=== PATIENT | male | born 1950 | race Caucasian/White ===

== ENCOUNTER 2019-05-16 16:40 | Emergency (ER) | payer OTHER ==
[2019-05-16] MEDS ORDERED: NA CHLORIDE 0.9% 1,000 ML ONE (17:14)
[2019-05-16] MEDS ORDERED: CEFTRIAXONE/SWI 1gm 1 GM/10 ML SYR ONE (17:38)
[2019-05-16 17:55] LABS: Absolute Lymphocytes (CBC) 1.7 K/uL (0.7-4.9); Basophils % 0.1 % (0-1.3); Hematocrit 45.9 % (39.6-49.0); Lymphocytes % 11.5 % (15.3-44.8); MPV 9.8 fL (7.6-11.3); RBC Red Blood Cell Count 5.24 M/uL (4.33-5.43)
[2019-05-16] MEDS ORDERED: levoFLOXacin 750 MG TAB ONE (18:04)
[2019-05-16 18:07] LABS: Albumin 4.2 g/dL (3.4-5.0); Bilirubin Total 1.2 mg/dL (0.2-1.0); Potassium 4.3 mmol/L (3.5-5.1); Protein, Total 8.4 g/dL (6.4-8.2)
[2019-05-16 18:28] LABS: Urine Blood TRACE (NEG); Urine Glucose NEGATIVE (NEG); Urine Protein 2+ (NEG); Urine pH 5.5 (5.0-7.0)
--- NOTE | 2019-05-16 18:36 | ER ---
Nurse's Notes [facility] Name: Alex Devine Age: 69 yrs Sex: Male : 1950 Arrival Date: 05/16/2019 Time: 16:44 Bed 26 Private MD: Diagnosis: Fever presenting with conditions classified elsewhere;Fever, unspecified;Urinary tract infection, site not specified;Streptococcal pharyngitis;Type 2 diabetes mellitus;Elevated white blood cell count Presentation: 05/16 16:46 Presenting complaint: Patient states: im having chills and fever for 2 days now, T max hj 101.8; reports L flank pain;. Transition of care: patient was not received from another setting of care. Onset of symptoms was May 16, 2019. Risk Assessment: Do you want to hurt yourself or someone else? Patient reports no desire to harm self or others. Initial Sepsis Screen: Does the patient meet any 2 criteria? No. Patient's initial sepsis screen is negative. Does the patient have a suspected source of infection? No. Patient's initial sepsis screen is negative. Care prior to arrival: None. 16:46 Method Of Arrival: Ambulatory 16:46 Acuity: ALAYNA 3 hj Triage Assessment: 16:50 General: Appears in no apparent distress. comfortable, Behavior is cooperative, bp appropriate for age, anxious. Pain: Complains of pain in left flank. EENT: No deficits noted. Neuro: No deficits noted. Cardiovascular: No deficits noted. Respiratory: No deficits noted. GI: No signs and/or symptoms were reported involving the gastrointestinal system. : Reports pain in left flank(s). Derm: No deficits noted. Musculoskeletal: No deficits noted. Historical: - Allergies: 16:48 No Known Allergies; hj - PMHx: 16:48 Diabetes - NIDDM; hj - PSHx: 16:48 None; hj - Immunization history:: Adult Immunizations unknown. - Social history:: Smoking status: Patient uses tobacco products, unknown amount. - Family history:: not pertinent. - Ebola Screening: : No symptoms or risks identified at this time. Screenin:50 Abuse screen: Denies threats or abuse. Denies injuries from another. Nutritional bp screening: No deficits noted. Tuberculosis screening: No symptoms or risk factors identified. Fall Risk None identified. Assessment: 16:50 General: SEE TRIAGE NOTE. bp 17:35 Reassessment: PT TO XRAY. bp 17:44 Reassessment: PT RETURNED FROM XRAY. 2ND CULTURES DRAWN. bp Vital Signs: 16:48 BP 126 / 75; Pulse 95; Resp 18; Temp 98.6(O); Pulse Ox 96% on R/A; Weight 76.2 kg; hj Height 5 ft. 4 in. (162.56 cm); 17:52 BP 139 / 70; Pulse 114; Resp 24; Pulse Ox 97% ; bp 19:09 BP 158 / 82; Pulse 100; Resp 16; Temp 98.6; Pulse Ox 100% ; bp 16:48 Body Mass Index 28.84 (76.20 kg, 162.56 cm) ED Course: 16:44 Patient arrived in ED. mr 16:47 Triage completed. hj 16:48 Arm band placed on right wrist. hj 16:50 Patient has correct armband on for positive identification. Bed in low position. Call bp light in reach. Side rails up X2. Adult w/ patient. 16:56 Martin Serrano MD is Attending Physician. [facility] 17:08 Abdifatah Deutsch, GUNNER is Primary Nurse. bp 17:10 Urine collected: clean catch specimen, clear, santiago colored. jp3 17:15 Flu and/or RSV swab sent to lab. Strep swab sent to lab. jp3 17:20 Initial lab(s) drawn, by ky, sent to lab. First set of blood cultures drawn. Inserted jp3 saline lock: 22 gauge in right antecubital area, using aseptic technique. Blood collected. 17:33 Patient maintains SpO2 saturation greater than 95% on room air. jp3 17:34 CBC with Diff Sent. jp3 17:34 Comprehensive Metabolic Panel Sent. jp3 17:34 Strep Sent. jp3 17:34 Urine Culture Sent. jp3 17:35 Influenza Screen (a \T\ B) Sent. jp3 17:46 Chest Pa And Lat (2 Views) XRAY In Process Unspecified. EDMS 19:09 No provider procedures requiring assistance completed. IV discontinued, intact, bp bleeding controlled, No redness/swelling at site. Pressure dressing applied. Administered Medications: 17:36 Drug: NS 0.9% 1000 ml Route: IV; Rate: 1 bolus; Site: right antecubital; bp 19:11 Follow up: IV Status: Completed infusion; IV Intake: 1000ml bp 17:53 Drug: Rocephin 1 grams Route: IV; Rate: per protocol; Site: right antecubital; bp 19:11 Follow up: IV Status: Completed infusion; IV Intake: 10ml bp 18:10 Drug: LevaQUIN 750 mg Route: PO; bp 19:08 Follow up: Response: No adverse reaction bp Intake: 19:11 IV: 10ml; Total: 10ml. bp 19:11 IV: 1000ml; Total: 1010ml. bp Outcome: 18:35 Discharge ordered by . jerry 19:10 Discharged to home ambulatory, with family. bp 19:10 Condition: stable 19:10 Discharge instructions given to patient, Instructed on discharge instructions, follow up and referral plans. medication usage, Demonstrated understanding of instructions, follow-up care, medications, Prescriptions given X 1. 19:12 Patient left the ED. bp Signatures: Dispatcher [employer] EDMS Martin Serrano MD MD cha Rivera, Mary mr Guillermo Guillen RN RN Abdifatah Gunn RN RN bp Claus Quinn jp3 Corrections: (The following items were deleted from the chart) 16:50 16:48 Pulse 95bpm; Resp 18bpm; Pulse Ox 96% RA; Temp 98.6F Oral; 76.2 kg; Height 5 ft. hj 4 in.; BMI: 28.8; hj
--- NOTE | 2019-05-16 18:36 | EDPHYS ---
Physician Documentation [facility] Name: Alex Devine Age: 69 yrs Sex: Male : 1950 Arrival Date: 05/16/2019 Time: 16:44 Bed 26 Private MD: ED Physician Martin Serrano HPI: 05/16 17:08 This 69 yrs old Male presents to ER via Ambulatory with complaints of Fever. jerry 17:08 The patient reports fever, not measured (subjective), that was measured at 100 degrees jerry Fahrenheit. Onset: The symptoms/episode began/occurred 2 day(s) ago. Modifying factors: there are no obvious modifying factors. Associated signs and symptoms: Pertinent positives: myalgias, sinus congestion. Historical: - Allergies: 16:48 No Known Allergies; hj - PMHx: 16:48 Diabetes - NIDDM; hj - PSHx: 16:48 None; hj - Immunization history:: Adult Immunizations unknown. - Social history:: Smoking status: Patient uses tobacco products, unknown amount. - Family history:: not pertinent. - Ebola Screening: : No symptoms or risks identified at this time. ROS: 17:08 Eyes: Negative for injury, pain, redness, and discharge, ENT: Negative for injury, jerry pain, and discharge, Neck: Negative for injury, pain, and swelling, Cardiovascular: Negative for chest pain, palpitations, and edema, Respiratory: Negative for shortness of breath, cough, wheezing, and pleuritic chest pain, Abdomen/GI: Negative for abdominal pain, nausea, vomiting, diarrhea, and constipation, Back: Negative for injury and pain, : Negative for injury, bleeding, discharge, and swelling, MS/Extremity: Negative for injury and deformity, Skin: Negative for injury, rash, and discoloration, Neuro: Negative for headache, weakness, numbness, tingling, and seizure, Psych: Negative for depression, anxiety, suicide ideation, homicidal ideation, and hallucinations, Endocrine: Negative for neck swelling, polydipsia, polyuria, polyphagia, and marked weight changes, Hematologic/Lymphatic: Negative for swollen nodes, abnormal bleeding, and unusual bruising. 17:08 Constitutional: Positive for body aches, fever, malaise. Exam: 17:08 Constitutional: This is a well developed, well nourished patient who is awake, alert, jerry and in no acute distress. Head/Face: Normocephalic, atraumatic. Eyes: Pupils equal round and reactive to light, extra-ocular motions intact. Lids and lashes normal. Conjunctiva and sclera are non-icteric and not injected. Cornea within normal limits. Periorbital areas with no swelling, redness, or edema. ENT: Nares patent. No nasal discharge, no septal abnormalities noted. Tympanic membranes are normal and external auditory canals are clear. Oropharynx with no redness, swelling, or masses, exudates, or evidence of obstruction, uvula midline. Mucous membranes moist. Neck: Trachea midline, no thyromegaly or masses palpated, and no cervical lymphadenopathy. Supple, full range of motion without nuchal rigidity, or vertebral point tenderness. No Meningismus. Chest/axilla: Normal chest wall appearance and motion. Nontender with no deformity. No lesions are appreciated. Cardiovascular: Regular rate and rhythm with a normal S1 and S2. No gallops, murmurs, or rubs. Normal PMI, no JVD. No pulse deficits. Respiratory: Lungs have equal breath sounds bilaterally, clear to auscultation and percussion. No rales, rhonchi or wheezes noted. No increased work of breathing, no retractions or nasal flaring. Abdomen/GI: Soft, non-tender, with normal bowel sounds. No distension or tympany. No guarding or rebound. No evidence of tenderness throughout. Back: No spinal tenderness. No costovertebral tenderness. Full range of motion. Male : Normal genitalia with no discharge or lesions. Skin: Warm, dry with normal turgor. Normal color with no rashes, no lesions, and no evidence of cellulitis. MS/ Extremity: Pulses equal, no cyanosis. Neurovascular intact. Full, normal range of motion. Neuro: Awake and alert, GCS 15, oriented to person, place, time, and situation. Cranial nerves II-XII grossly intact. Motor strength 5/5 in all extremities. Sensory grossly intact. Cerebellar exam normal. Normal gait. Psych: Awake, alert, with orientation to person, place and time. Behavior, mood, and affect are within normal limits. Vital Signs: 16:48 BP 126 / 75; Pulse 95; Resp 18; Temp 98.6(O); Pulse Ox 96% on R/A; Weight 76.2 kg; hj Height 5 ft. 4 in. (162.56 cm); 17:52 BP 139 / 70; Pulse 114; Resp 24; Pulse Ox 97% ; bp 19:09 BP 158 / 82; Pulse 100; Resp 16; Temp 98.6; Pulse Ox 100% ; bp 16:48 Body Mass Index 28.84 (76.20 kg, 162.56 cm) MDM: 16:56 Patient medically screened. [facility] 17:10 Data reviewed: vital signs, nurses notes, lab test result(s), EKG, radiologic studies, [facility] CT scan, plain films. 05/16 17:08 Order name: CBC with Diff; Complete Time: 18:34 [facility] 05/16 17:08 Order name: Comprehensive Metabolic Panel; Complete Time: 18:34 [facility] 05/16 17:08 Order name: Strep; Complete Time: 17:59 [facility] 05/16 17:08 Order name: Blood Culture Adult (2) [facility] 05/16 17:08 Order name: Urine Culture [facility] 05/16 17:10 Order name: Influenza Screen (a \T\ B); Complete Time: 18:34 [facility] 05/16 17:08 Order name: Chest Pa And Lat (2 Views) XRAY [facility] 05/16 17:08 Order name: Urine Dipstick-Ancillary (obtain specimen); Complete Time: 17:36 [facility] 05/16 17:39 Order name: Urine Dipstick--Ancillary (enter results); Complete Time: 18:34 bd Administered Medications: 17:36 Drug: NS 0.9% 1000 ml Route: IV; Rate: 1 bolus; Site: right antecubital; bp 19:11 Follow up: IV Status: Completed infusion; IV Intake: 1000ml bp 17:53 Drug: Rocephin 1 grams Route: IV; Rate: per protocol; Site: right antecubital; bp 19:11 Follow up: IV Status: Completed infusion; IV Intake: 10ml bp 18:10 Drug: LevaQUIN 750 mg Route: PO; bp 19:08 Follow up: Response: No adverse reaction bp Disposition: 05/16/19 18:35 Discharged to Home. Impression: Fever presenting with conditions classified elsewhere, Fever, unspecified, Urinary tract infection, site not specified, Streptococcal pharyngitis, Type 2 diabetes mellitus, Elevated white blood cell count. - Condition is Stable. - Discharge Instructions: Type 2 Diabetes Mellitus, Diagnosis, Adult, Dysuria, Fever, Adult, Sore Throat, Strep Throat, Urinary Tract Infection, Adult, Urinary Tract Infection, Adult, [id number], Type 2 Diabetes Mellitus, Diagnosis, Adult, [id number]. - Prescriptions for Levaquin 500 mg Oral Tablet - take 1 tablet by ORAL route once daily for 8-10 days; 9 tablet. - Medication Reconciliation Form, Thank You Letter, Antibiotic Education, Prescription Opioid Use form. - Follow up: Private Physician; When: 2 - 3 days; Reason: Recheck today's complaints, Continuance of care, Re-evaluation by your physician. - Problem is new. - Symptoms have improved. Signatures: Dispatcher [employer] EDMartin Garcia MD MD cha Joaquin, Henry, RN RN Abdifatah Gunn RN RN bp Corrections: (The following items were deleted from the chart) 19:12 18:35 05/16/2019 18:35 Discharged to Home. Impression: Fever presenting with conditions bp classified elsewhere; Fever, unspecified; Urinary tract infection, site not specified; Streptococcal pharyngitis; Type 2 diabetes mellitus; Elevated white blood cell count. Condition is Stable. Discharge Instructions: Type 2 Diabetes Mellitus, Diagnosis, Adult, Dysuria, Sore Throat, Strep Throat, Urinary Tract Infection, Adult, Urinary Tract Infection, Adult, [id number], Type 2 Diabetes Mellitus, Diagnosis, Adult, [id number], Fever, Adult. Prescriptions for Levaquin 500 mg Oral Tablet - take 1 tablet by ORAL route once daily for 8-10 days; 9 tablet. and Forms are Medication Reconciliation Form, Thank You Letter, Antibiotic Education, Prescription Opioid Use. Follow up: Private Physician; When: 2 - 3 days; Reason: Recheck today's complaints, Continuance of care, Re-evaluation by your physician. Problem is new. Symptoms have improved. jerry
--- NOTE | 2019-05-16 19:10 | RAD REPORT ---
EXAM DESCRIPTION: RAD - Chest Pa And Lat (2 Views) - 05/16/2019 5:45 pm CLINICAL HISTORY: COUGH, chills and fever COMPARISON: None. TECHNIQUE: PA and lateral views of the chest were obtained. FINDINGS: The lungs are clear of focal infiltrate. No failure or volume overload. Lung markings appe ar to be baseline. No hilar abnormality seen. Heart size is normal and central vasculature is withi n normal limits. No pleural effusion or pneumothorax seen. No acute bone finding. Bridging ossifica tion is seen spanning multiple levels of the mid and lower thoracic spine. Wedging of a midthoracic v ertebrae noted believed to be chronic. No aortic abnormality. IMPRESSION: No acute cardiopulmonary process.
== END 2019-05-16 19:12 | disposition home or self-care (01) ==
LOC: ER 16:40
DX: N39.0 Urinary tract infection, site not specified (principal); J02.0 Streptococcal pharyngitis; D72.829 Elevated white blood cell count, unspecified; E11.9 Type 2 diabetes mellitus without complications; Z72.0 Tobacco use
CPT/HCPCS: 87040 ×2; 87088; 85025; 87086; 36415; 87081; 81003; 80053; 87804 ×2; 71046; J0696; J7030; 96365; 99284

== ENCOUNTER 2021-09-10 08:40 | Day surgery (SDC) | payer OTHER ==
--- NOTE | 2021-09-05 14:22 | RAD REPORT ---
EXAM DESCRIPTION: RAD - Chest Pa And Lat (2 Views) - 09/05/2021 2:17 pm CLINICAL HISTORY: Pre Op pending TURP COMPARISON: Chest Pa And Lat (2 Views) dated 05/16/2019 FINDINGS: Lines: None. Lungs: No evidence of edema or pneumonia. Pleural: No significant pleural effusions or pneumothorax. Cardiac: The heart size is within normal limits. Bones: No acute fractures. Bridging osteophytes in the spine. Other: IMPRESSION: No acute cardiopulmonary disease.
[2021-09-05 14:33] LABS: Potassium 3.7 mmol/L (3.5-5.1)
[2021-09-05 14:37] LABS: Absolute Lymphocytes (CBC) 1.5 K/uL (0.7-4.9); Basophils % 0.2 % (0-1.3); Hematocrit 42.2 % (39.6-49.0); Lymphocytes % 30.9 % (15.3-44.8); MPV 9.2 fL (7.6-11.3); RBC Red Blood Cell Count 4.69 M/uL (4.33-5.43)
[2021-09-05 14:38] LABS: Protime INR 0.99
--- NOTE | 2021-09-07 17:03 | EKG ---
Test Date: 2021-09-05 Test Time: 13:54:39 [place]: SELENE MEASUREMENT RESULTS: Intervals: Rate: 78 RI: 194 QRSD: 128 QT: 386 QTc: 440 Harrison: P: 90 RI: 194 QRS: 25 T: 65 INTERPRETIVE STATEMENTS: Sinus rhythm with premature atrial complexes Right bundle branch block Septal infarct, age undetermined Abnormal ECG No previous ECG available for comparison Electronically Signed On 09-07-21 17:00:14 [employer]OLITION WORKER by Olayinka France
[2021-09-10] MEDS ORDERED: AMPICILLIN SODIUM 2 GM in NA CHLORIDE 0.9% 100 ML IVPB ONE (09:00)
[2021-09-10] MEDS ORDERED: Gentamicin Inj 160 MG in NA CHLORIDE 0.9% 100 ML IVPB ONE (09:00)
[2021-09-10] MEDS ORDERED: Ringers Lactate 1,000 ML IV ONE (09:05)
[2021-09-10] MEDS ORDERED: propofoL 200 MG/20 ML VIAL IV ONE (10:40)
[2021-09-10] MEDS ORDERED: FENTANYL CITR 100 MCG/2 ML ONE ×2 (10:40→12:14)
[2021-09-10] MEDS ORDERED: LIDOCAINE 1% MPF 5 ML VIAL ONE (10:41)
[2021-09-10] MEDS ORDERED: KETOROLAC 30 MG/ML INJ ONE (11:19)
[2021-09-10] MEDS ORDERED: ONDANSETRON 4 MG/2 ML VIAL ONE (11:20)
[2021-09-10] MEDS ORDERED: GLYCOPYRROLATE 0.2 MG/ML SYR ONE ×2 (11:21→11:57)
[2021-09-10] MEDS ORDERED: Phenylephrine HCl 10 MG/ML 1 ML VIAL ONE (12:08)
[2021-09-10] MEDS ORDERED: NS 0.9% VIAL 10 ML ONE (12:08)
[2021-09-10] MEDS ORDERED: CODEINE 30MG/APAP 300MG TAB PO PRN (14:00)
[2021-09-10] MEDS ORDERED: OPIUM/BELLADONNA SUPPOS (30-16.2 MG) PR ONE ×2 (14:00→14:04)
[2021-09-10] MEDS ORDERED: PHENAZOPYRIDINE 100MG TAB PO ONE ×2 (14:00→14:54)
[2021-09-10 14:48] LABS: Hematocrit 39.9 % (39.6-49.0); MPV 9.1 fL (7.6-11.3); RBC Red Blood Cell Count 4.49 M/uL (4.33-5.43)
[2021-09-10] MEDS ORDERED: CODEINE 30MG/APAP 300MG TAB ONE (14:54)
--- NOTE | 2021-09-10 15:12 | OP ---
Surgeon: SHELBIE SIBLEY Preoperative Diagnoses: 1.Benign prostatic hypertrophy with obstruction and lower urinary tract symptoms. 2.Significantly enlarged prostate. Postoperative Diagnoses: 1.Benign prostatic hypertrophy with obstruction and lower urinary tract symptoms. 2.Significantly enlarged prostate. Principle Procedure: Bipolar transurethral resection of prostate - extensive. Indication For Procedure: Mr. Devine presented to the Urology Clinic with obstructive urinary symp toms, managed with medical therapy. He subsequently underwent a biopsy of the prostate due to elevat ed PSA and revealed a 115 g gland, but no evidence of malignancy. He was counseled on further option s to manage his obstructive urinary symptoms beyond maximal medical therapy, which he was already beltran ing. Since his prostate was in such significant size, he was only a candidate for a bipolar TURP or robotic suprapubic prostatectomy. Procedure In Detail: The patient was consented in the preoperative holding area before being transfe rred to operative suite where general anesthesia was induced. He was given ampicillin 2 g and gentam icin IV antimicrobial prophylaxis. Pneumo boots were provided for DVT prophylaxis. He was placed in the lithotomy position, padded and secured to the table appropriately. His genitalia were prepped u sing Hibiclens and draped in standard fashion. The case was begun using urethral sounds to dilate th e meatus and fossa navicularis to 30-Sudanese. I then utilized the visual obturator and the resectosco pe to traverse the urethra and into the bladder with ease. The bladder was decompressed of urine and surveyed. There were no papillary mucosal lesions, foreign bodies or stones throughout. There was a large diverticulum emanating from the left lateral wall just lateral to the ureteral orifice. This was also free of mucosal lesion, foreign body or stone. The median lobe was projecting intravesical ly and abutting the ureteral orifices bilaterally. As such, I began the resection with direct visual ization of the right ureteral orifice and resecting the median lobe down to the level of the bladder neck. A similar procedure was performed using the left ureteral orifice as a guide to resect the med ev lobe on the left side. The mid component of the median lobe was then resected until the bladder neck was flat and then I resected the remainder of the median bar all the way to the level of the malia umontanum. The prostatic urethral length was several cm, likely 4 or 5 cm in length. Once the media n bar was completely resected down to the verumontanum, I then turned my attention to perform an exte nsive resection of the left lateral lobe of the prostate. The prostate was quite vascular during the resection and the resection was done in stages due to the length of the prostatic urethra - initiall y the bladder neck, then the midportion of the prostate, then the apical interdigitating and overlapp ing the midline tissue. The verumontanum was visualized and the tissue overlapping the verumontanum of the apex was resected until it was just kissing the lateral portion of the verumontanum. Once thi s was performed, I then resected the apical intravesical component to the level of the verumontanum. I then performed a similar resection involving the right side of the prostate in the right lateral l obe resecting it all the way to the anterior component of the prostate. Once the resection was compl ete, there was a nicely patent channel from the verumontanum all the way through the bladder neck int o the bladder. The ureteral orifices were uninjured during the procedure as was the bladder. All pr ostate chips were removed using Ellik evacuation, or I directly grasped and removed any recalcitrant chips. Once the bladder was free of any residual prostatic chips and I had completely fulgurated any and all bleeding vessels such that without irrigant fluid going in, the urine and fluid were complet amelia clear, then I left the bladder full and removed the resectoscope. I then passed a 24-Sudanese 3-wa y Mcfarland catheter into his bladder with ease and put 50 cc of sterile saline into the balloon. I then placed the catheter to moderate traction and took the patient out of the lithotomy position. He was then awakened from general anesthesia, transferred to a stretcher and then transferred [facility] room in good condition. Of note, the catheter was connected to slow drip CBI and was completely c lear. Complications: None. Discharge Disposition: He will follow up in Urology Clinic on Thursday for anticipated voiding trial. A prescription for ciprofloxacin has been sent for 7 days. GUILLE/SUE Voice ID: [id number] Report ID: [id number]
[2021-09-10 20:23] VITALS: BP 112/71; TEMP 97.9; O2SAT 100
== END 2021-09-10 16:50 | disposition home or self-care (01) ==
LOC: OR 08:40
PROVIDERS: ATTEND Urology
PROC: 0VT08ZZ Resection of Prostate, Via Natural or Artificial Opening Endoscopic (ICD-10-PCS; principal; 2021-09-10 10:15)
DX: N40.1 Benign prostatic hyperplasia with lower urinary tract symptoms (principal); N13.9 Obstructive and reflux uropathy, unspecified; N40.0 Benign prostatic hyperplasia without lower urinary tract symptoms; Z20.822 Contact with and (suspected) exposure to COVID-19
CPT/HCPCS: 93005; 87088; 85025; 87086; 80048; 36415 ×2; 85610; 88305; 85027; 71046; 52601; U0003; J2704; J2370; J1580; J3010 ×2; J7120; J2405; J0290